=== PATIENT | female | born 2000 | race Caucasian/White ===

== ENCOUNTER 2024-01-24 21:16 | Emergency (ER) | payer MEDICAID, SELFPAY ==
[2024-01-24 21:18] VITALS: BP 129/85; PULSE 105; RESP 16; TEMP 37.9; O2SAT 97; BMI 31.3
--- NOTE | 2024-01-24 21:46 | ED_ITS ---
<Statement entered by Negrita Sharma DO - 01/24/24 23:53> I was consulted by the LANDRY, and we discussed the complexity of the problems being addressed. I approved the treatment and management plan for this patient's care in the emergency department, thus performing a substantive portion of the medical decision making. Negrita Sharma DO Discharge Plan Disposition Patient Disposition: Home, Self-Care Condition: Good Prescriptions Prescriptions: New cephalexin 500 mg capsule 500 mg PO BID 7 Days Qty: 14 0RF Referrals Follow up/Referrals: Kareen De La Fuente PA [Primary Care Provider] - See instructions Activity Restrictions/Add. Instructions Additional Instructions/Restrictions: Increase fluids and rest. Take ibuprofen for the pain and fever if needed. Take antibiotics as directed. If any other problems or concerns arise please return to the ED. Call PCP for follow-up treatment Clinical Impressions Clinical Impression: Pharyngitis Print Language Print Language: Chinese Discharge ED Provider: Negrita Sharma General Adult HPI <Carmelita Johnson (ED), PROFILE TRIMMER - Last Filed: 01/24/24 23:06> General Chief complaint: Upper Respiratory Infection Stated complaint: swollen lymph node rt side of neck, weak Time Seen by Provider: 01/24/24 21:38 Mode of Arrival: Ambulatory Source of Information: Patient Limitations: No Limitations Description of Symptoms (Recalled from ER Triage Doc. by RN): Patient ambulatory to ED with complaints of right side swollen throat pain with swollen lymph node x 3 days. Patient complains of body aches and low grade fever. Vomiting intermittently Related Data Previous Rx's ?Medication ?Instructions ?Recorded cephalexin 500 mg capsule 500 mg PO BID 7 days #14 caps 01/24/24 Allergies Allergy/AdvReac Type Severity Reaction Status Date / Time No Known Allergies Allergy Verified 01/24/24 21:46 PFSH <Carmelita Johnson (ED), PROFILE TRIMMER - Last Filed: 01/24/24 23:06> [facility], [facility] Disclaimer: The information contained in this section may have been updated after the patient was seen, as this information can be updated by other users. Social History Smoking Status: Never smoker alcohol intake: never current occupational status: employed Travel in the last 8 weeks: None <Carmelita Johnson (ED), PROFILE TRIMMER - Last Filed: 01/24/24 23:06> ROS Obtained: Yes Systems reviewed as appropriate & no additional complaints except as documented Constitutional Constitutional: Reports as per HPI Physical Exam <Carmelita Lavernemarcela (ED), PROFILE TRIMMER - Last Filed: 01/24/24 23:06> General General appearance: alert Head Head exam: atraumatic and normocephalic Eye Eye exam: Present normal appearance, PERRL and EOMI ENT ENT exam: Present normal exam and normal oropharynx Neck Neck exam: Present normal inspection, full ROM and trachea midline Respiratory Respiratory exam: Present normal lung sounds bilaterally Cardiovascular Cardiovascular exam: Present regular rate, normal rhythm, normal heart sounds, +S1 and +S2 Abdominal Exam Abdominal exam: Present soft and normal bowel sounds Extremities Exam Extremities exam: Present normal inspection, full ROM and normal capillary refill Neurological Exam Neurological exam: Present alert, oriented X3 and normal gait Skin Skin exam: Present warm, dry and intact Medical Decision Making <Carmelita Johnson (ED), PROFILE TRIMMER - Last Filed: 01/24/24 23:06> Medical Records Screening: Per USPSTF and CDC recommendations, given the prevalence of disease in our region, it is our hospital?s policy to screen for HIV and viral Hepatitis for all patients aged 18 and over and those with ongoing risk factors. Dominic Inquiry Pt receiving controlled substance: No Dominic was queried for this patient: No Vital Signs: 01/24/24 21:18 01/24/24 23:27 Temperature 100.2 F H 98.1 F Temperature Source Oral Oral Pulse Rate 79 Pulse Rate [Right] 105 H Respiratory Rate 16 15 Blood Pressure 104/65 L Blood Pressure [Right Arm] 129/85 Blood Pressure Mean [Right Arm] 99 Blood Pressure Source Automatic Cuff Blood Pressure Source [Right Arm] Automatic Cuff Blood Pressure Position Sitting Blood Pressure Position [Right Arm] Sitting 02 Sat by Pulse Oximetry 97 Oxygen Delivery Method Room Air Room Air Lab Data Lab Results 01/24/24 21:33: Group A Strep Rapid Negative 01/24/24 22:07: SARS-CoV-2 (PCR) Not detected, Influenza A Untype (PCR) Not detected, Influenza Type B (PCR) Not detected Orders (Tests/Meds): ED MEDICATIONS Discontinued Medications Generic Name Dose Route Start Last Admin Trade Name Freq PRN Reason Stop Dose Admin Dexamethasone Sodium Phosphate 8 mg 01/24/24 22:52 01/24/24 23:00 Dexamethasone 4mg/Ml 1ml Vial IV 01/24/24 22:53 8 mg ONCE ONE Administration Sodium Chloride 1,000 mls @ 999 mls/hr 01/24/24 21:44 01/24/24 21:50 Sod Chlor 0.9% 1000ml Bag IV 01/24/24 22:44 999 mls/hr .Q1H1M ONE Administration Ketorolac Tromethamine 15 mg 01/24/24 21:44 01/24/24 21:50 Ketorolac 30mg/Ml Vial IV 01/24/24 21:45 15 mg ONCE ONE Administration Ondansetron HCl 4 mg 01/24/24 21:44 01/24/24 21:50 Ondansetron 4mg/2ml Vial IV 01/24/24 21:45 4 mg ONCE ONE Administration ORDERS Category Date Time Status Rapid PCR Covid and Flu A/B Stat Lab 01/24/24 22:07 Completed Strep Scrn Group A (Rapid) Stat Lab 01/24/24 21:33 Completed Strep Screen Confirmation Stat Micro 01/24/24 21:33 Received Medical Decision Narrative: Insert review patient is a 23-year-old female presenting to the emergency department for evaluation of headache, cough, swollen lymph nodes, nausea, vomiting and dry throat. She feels weak and having chills and sweating. She says she is not tolerating much to eat or drink since last night.. Patient has a mild tachycardia with a heart rate of 105, temp of 100.2. Initial inventions include normal saline bolus, Toradol and Zofran. Initial workup will include COVID, strep. Strep test was negative. Discussed with patient that we would give her a shot of dexamethasone for the swelling. She has to follow-up with her PCP <Negrita Sharma, DO - Last Filed: 01/24/24 23:53> Vital Signs: 01/24/24 21:18 01/24/24 23:27 Temperature 100.2 F H 98.1 F Temperature Source Oral Oral Pulse Rate 79 Pulse Rate [Right] 105 H Respiratory Rate 16 15 Blood Pressure 104/65 L Blood Pressure [Right Arm] 129/85 Blood Pressure Mean [Right Arm] 99 Blood Pressure Source Automatic Cuff Blood Pressure Source [Right Arm] Automatic Cuff Blood Pressure Position Sitting Blood Pressure Position [Right Arm] Sitting 02 Sat by Pulse Oximetry 97 Oxygen Delivery Method Room Air Room Air Lab Data Lab Results 01/24/24 21:33: Group A Strep Rapid Negative 01/24/24 22:07: SARS-CoV-2 (PCR) Not detected, Influenza A Untype (PCR) Not detected, Influenza Type B (PCR) Not detected Orders (Tests/Meds): ED MEDICATIONS Discontinued Medications Generic Name Dose Route Start Last Admin Trade Name Ernesto PRN Reason Stop Dose Admin Dexamethasone Sodium Phosphate 8 mg 01/24/24 22:52 01/24/24 23:00 Dexamethasone 4mg/Ml 1ml Vial IV 01/24/24 22:53 8 mg ONCE ONE Administration Sodium Chloride 1,000 mls @ 999 mls/hr 01/24/24 21:44 01/24/24 21:50 Sod Chlor 0.9% 1000ml Bag IV 01/24/24 22:44 999 mls/hr .Q1H1M ONE Administration Ketorolac Tromethamine 15 mg 01/24/24 21:44 01/24/24 21:50 Ketorolac 30mg/Ml Vial IV 01/24/24 21:45 15 mg ONCE ONE Administration Ondansetron HCl 4 mg 01/24/24 21:44 01/24/24 21:50 Ondansetron 4mg/2ml Vial IV 01/24/24 21:45 4 mg ONCE ONE Administration ORDERS Category Date Time Status Rapid PCR Covid and Flu A/B Stat Lab 01/24/24 22:07 Completed Strep Scrn Group A (Rapid) Stat Lab 01/24/24 21:33 Completed Strep Screen Confirmation Stat Micro 01/24/24 21:33 Received Medical Decision Narrative: Insert review patient is a 23-year-old female presenting to the emergency department for evaluation of headache, cough, swollen lymph nodes, nausea, vomiting and dry throat. She feels weak and having chills and sweating. She says she is not tolerating much to eat or drink since last night.. Patient has a mild tachycardia with a heart rate of 105, temp of 100.2. Initial inventions include normal saline bolus, Toradol and Zofran. Initial workup will include COVID, strep. Strep test was negative. Discussed with patient that we would give her a shot of dexamethasone for the swelling. On reassessment, she is improved. It is felt that she likely has a viral syndrome at this time and is appropriate for discharge home with strict return precautions given her reassuring exam. She has to follow-up with her PCP. Strict return precautions were given Critical Care <Negrita Sharma, DO - Last Filed: 01/24/24 23:53> Critical Care Time Critical Care Time: No
[2024-01-24] MEDS: 0.9 % SODIUM CHLORIDE 1000ML 1,000 ML 999 ML IV (21:50)
[2024-01-24] MEDS: KETOROLAC 30MG/ML VIAL 15 MG IV (21:50)
[2024-01-24] MEDS: ONDANSETRON 4MG/2ML VIAL 4 MG IV (21:50)
[2024-01-24 21:57] LABS: Strep Scrn Group A (Rapid) Negative (Negative)
[2024-01-24 22:12] LABS: Coronavirus 19, PCR Not Detected (NotDetected); Influenza A, PCR Not Detected (NotDetected); Influenza B, PCR Not Detected (NotDetected)
[2024-01-24] MEDS: DEXAMETHASONE 4MG/ML 1ML VIAL 8 MG IV (23:00)
[2024-01-24 23:27] VITALS: BP 104/65; PULSE 79; RESP 15; TEMP 36.7; O2SAT 96
== END 2024-01-24 23:27 | disposition home or self-care (01) ==
PROVIDERS: Nurse Practitioner; Emergency Provider Emergency Medicine; PCP Physician Assistant Medical
DX: J06.9 Acute upper respiratory infection, unspecified (principal); J02.9 Acute pharyngitis, unspecified; R59.9 Enlarged lymph nodes, unspecified; R50.9 Fever, unspecified; R53.1 Weakness; R11.10 Vomiting, unspecified; R00.0 Tachycardia, unspecified
CPT/HCPCS: 87430; 87636; 96361; 96374; 96375; 99284; J1100; J1885; J2405; J7030

== ENCOUNTER 2024-07-15 13:10 | Emergency (ER) | payer MEDICAID, SELFPAY ==
[2024-07-15 13:30] VITALS: BP 110/86; PULSE 100; RESP 18; TEMP 36.9; O2SAT 97; BMI 41.5
[2024-07-15 13:38] LABS: Coronavirus 19, PCR Not Detected (NotDetected); Influenza A, PCR Not Detected (NotDetected); Influenza B, PCR Not Detected (NotDetected)
--- NOTE | 2024-07-15 15:04 | [facility].EDGENADL ---
Discharge Plan Disposition Patient Disposition: Home, Self-Care Prescriptions Prescriptions: New ondansetron 4 mg tablet,disintegrating 4 mg PO Q6H PRN (Reason: nausea and vomiting) Qty: 10 0RF No Action cephalexin 500 mg capsule 500 mg PO BID 7 Days Qty: 14 0RF Referrals Follow up/Referrals: Karene De La Fuente PA [Primary Care Provider] - See instructions Activity Restrictions/Add. Instructions Additional Instructions/Restrictions: Call your family doctor to establish care for this visit to the emergency department and schedule follow-up within 48 hours to ensure improvement. If you have any worsening of your condition or any other concerning signs or symptoms, return to the emergency department or your primary care doctor for further evaluation. Clinical Impressions Clinical Impression: Acute viral syndrome Print Language Print Language: Angolan Discharge ED Provider: Tim Wells Adult HPI General Chief complaint: Upper Respiratory Infection Stated complaint: vomiting, weakness, chills Time Seen by Provider: 07/15/24 15:04 Mode of Arrival: Ambulatory Source of Information: Patient Description of Symptoms (Recalled from ER Triage Doc. by RN): pt states she started vomiting this am when she got home from work. pt reports aching all over, chills. pt states uncertain of fever. History of Present Illness HPI narrative: Please note that above description of symptoms, in this electronic medical record under categorization of recalled from ER triage doctor by RN are reflective of an initial nursing assessment, however, is not reflective of my full history and physical exam that was personally taken and clarified. Consequentially, this preceding description of symptoms, which may include the patient's categorized chief complaint in the EMR, do not reflect my personal clinical impression, and the ultimate description of history of present illness and patient stated complaints should be deferred to this section of the note. Unless stated otherwise or congruent with this section of the note, additional signs, symptoms, or incongruence should be interpreted as inaccurate with my clinical impression. Related Data Previous Rx's ?Medication ?Instructions ?Recorded cephalexin 500 mg capsule 500 mg PO BID 7 days #14 caps 01/24/24 ondansetron 4 mg disintegrating 4 mg PO Q6H PRN nausea and 07/15/24 tablet vomiting #10 tabs Allergies Allergy/AdvReac Type Severity Reaction Status Date / Time No Known Allergies Allergy Verified 01/24/24 21:46 [facility] Disclaimer: The information contained in this section may have been updated after the patient was seen, as this information can be updated by other users. Social History (Updated 01/24/24 @ 23:53 by Negrita Sharma DO) Smoking Status: Never smoker alcohol intake: never current occupational status: employed Travel in the last 8 weeks: None Have you lived/traveled outside [place] in past 30 days?: No Contact w/someone who lives/traveled outside [place] past 30 days?: No Exposure to someone with infectious disease in past 14 days?: No Do you have a fever (greater than 100.4 F or 38 C)?: No Have you tested positive for COVID-19: No Exposed to someone with COVID-19 in past 14 days?: No Do you have a sore throat?: No Do you have a cough?: No Do you have any weakness?: Yes Do you have any diarrhea?: No Are you experiencing any unusual bleeding?: No Do you have any muscle aches/pain?: No Do you have any abdominal pain?: No Are you experiencing loss of taste or smell?: No ROS Obtained: Yes All systems reviewed & no additional complaints except as documented Physical Exam General General appearance: alert Head Head exam: atraumatic and normocephalic Eye Eye exam: Present normal appearance, PERRL and EOMI Neck Neck exam: Present normal inspection, full ROM and trachea midline Respiratory Respiratory exam: Absent respiratory distress, wheezes, stridor, accessory muscle use or prolonged expiratory phase Cardiovascular Cardiovascular exam: Present other (Pulses equal symmetric in upper and lower extremities) Abdominal Exam Abdominal exam: Present soft; Absent distention, tenderness or pulsatile mass Extremities Exam Extremities exam: Absent edema Neurological Exam Neurological exam: Present alert, oriented X3 and CN II-XII intact; Absent motor sensory deficit Skin Skin exam: Present warm and dry; Absent diaphoresis or erythema Medical Decision Making Medical Records Medical records reviewed: Yes I reviewed the patient's medical records. Screening: Per USPSTF and CDC recommendations, given the prevalence of disease in our region, it is our hospital?s policy to screen for HIV and viral Hepatitis for all patients aged 18 and over and those with ongoing risk factors. Dominic Inquiry Pt receiving controlled substance: No Dominic was queried for this patient: No Vital Signs: 07/15/24 13:30 Temperature 98.5 F Temperature Source Oral Pulse Rate [Right Radial] 100 H Respiratory Rate 18 Blood Pressure [Right Arm] 110/86 Blood Pressure Mean [Right Arm] 94 02 Sat by Pulse Oximetry 97 Oxygen Delivery Method Room Air Lab Data Lab Results 07/15/24 13:34: SARS-CoV-2 (PCR) Not detected, Influenza A Untype (PCR) Not detected, Influenza Type B (PCR) Not detected Orders (Tests/Meds): ED MEDICATIONS Discontinued Medications Generic Name Dose Route Start Last Admin Trade Name Ernesto PRN Reason Stop Dose Admin Ondansetron HCl 4 mg 07/15/24 15:11 07/15/24 15:13 Ondansetron 4mg Odt SL 07/15/24 15:12 4 mg ONCE ONE Administration ORDERS Category Date Time Status Rapid PCR Covid and Flu A/B Stat Lab 07/15/24 13:34 Completed Medical Decision Narrative: 23-year-old female presenting with vomiting and diarrhea. 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 Started throwing up around 6 AM. Largely unable to tolerate any fluids or food secondary to vomiting. Also having nonbloody diarrhea. Vomiting is nonbloody, nonbilious and looks like mucus. Has been chilled, but no objective fevers have been measured. No acute complaints at this time. States that she has not been vomiting since she has been here, but still feels nauseated. No abdominal pain or complaints. History obtained with patient. On arrival, patient hemodynamically stable, alert, oriented x4, appropriate, GCS 15, moving all extremities spontaneously, pupils equal and reactive to light. Full physical exam performed and significant for well-appearing female no acute distress. Patient speaking full sentences, hemodynamically stable and afebrile. Differential includes gastritis, gastroenteritis, among others. Patient given sublingual Zofran. Viral swab to be obtained at request. On independent interpretation, viral swab negative for COVID and flu. On reevaluation, tolerating p.o. intake after Zofran. Given patient presentation, workup, history, this most likely represents acute gastroenteritis. Because patient at baseline without signs or symptoms of clinical decompensation, deemed appropriate for discharge. Results were relayed to patient who voiced understanding and were agreeable to outpatient management and follow up. I discussed my clinical impression with patient and answered all questions. At this time, the evidence for any other entities in the differential is insufficient to warrant any further testing or ED observation. This was explained as well. Advisory was given that persistent or worsening symptoms require further evaluation. I confirmed the understanding of this discussion. Traffic Representative disclaimer Much of this encounter note is an electronic electronic publications specialist spoken language to printed text. Electronic electronic publications specialist of the spoken language may permit errors. Although I have reviewed the note, some errors may still exist. Critical Care Critical Care Time Critical Care Time: No
[2024-07-15] MEDS: ONDANSETRON 4MG ODT 4 MG SL (15:13)
[2024-07-15 15:31] VITALS: BP 110/86; PULSE 100; RESP 18; TEMP 36.9; O2SAT 97
== END 2024-07-15 15:32 | disposition home or self-care (01) ==
PROVIDERS: Emergency Provider Emergency Medicine; PCP Physician Assistant Medical
DX: B34.9 Viral infection, unspecified (principal); R11.10 Vomiting, unspecified; R52 Pain, unspecified; R68.83 Chills (without fever); R19.7 Diarrhea, unspecified; R11.0 Nausea
CPT/HCPCS: 87636; 99283; Q0162

== ENCOUNTER 2024-07-17 04:46 | Emergency (ER) | payer MEDICAID, SELFPAY ==
--- NOTE | 2024-07-17 04:53 | HMH.EDGENADL ---
Discharge Plan Disposition Patient Disposition: Home, Self-Care Prescriptions Prescriptions: New promethazine 25 mg tablet 25 mg PO Q6H PRN (Reason: nausea and vomiting) Qty: 20 0RF No Action ondansetron 4 mg tablet,disintegrating 4 mg PO Q6H PRN (Reason: nausea and vomiting) Qty: 10 0RF cephalexin 500 mg capsule 500 mg PO BID 7 Days Qty: 14 0RF Referrals Follow up/Referrals: Provider,Referral, MD [Primary Care Provider] - See instructions Activity Restrictions/Add. Instructions Additional Instructions/Restrictions: Please follow-up with your primary care provider. Please return to the emergency department if you develop any new or worsening symptoms or become concerned for your health. Please take Phenergan as needed for nausea and vomiting. Clinical Impressions Clinical Impression: Nausea vomiting and diarrhea Instructions Patient Instructions: DI for Diarrhea and Traveler's Diarrhea -- Adult, DI for Diarrhea and Traveler's Diarrhea -- Child, DI for Nausea -- Adult, DI for Nausea -- Child Print Language Print Language: Libyan Discharge ED Provider: Gurinder Arenas General Adult HPI General Chief complaint: Nausea/Vomiting/Diarrhea Stated complaint: vomiting, diarrhea, fever Time Seen by Provider: 07/17/24 04:53 History of Present Illness HPI narrative: 23-year-old female presents for continued nausea vomiting and diarrhea. She was seen here several days ago and tested negative for COVID and flu and was discharged but her symptoms have persisted. She is able to keep things down for approximately an hour but then vomited afterwards. She reports no blood in the vomit or diarrhea. Some crampy abdominal pain with vomiting but no severe or specific abdominal pain. Related Data Previous Rx's ?Medication ?Instructions ?Recorded cephalexin 500 mg capsule 500 mg PO BID 7 days #14 caps 01/24/24 ondansetron 4 mg disintegrating 4 mg PO Q6H PRN nausea and 07/15/24 tablet vomiting #10 tabs promethazine 25 mg tablet 25 mg PO Q6H PRN nausea and 07/17/24 vomiting #20 tabs Allergies Allergy/AdvReac Type Severity Reaction Status Date / Time No Known Allergies Allergy Verified 01/24/24 21:46 [facility] Disclaimer: The information contained in this section may have been updated after the patient was seen, as this information can be updated by other users. Social History (Updated 01/24/24 @ 23:53 by Negrita Sharma DO) Smoking Status: Never smoker alcohol intake: never current occupational status: employed Travel in the last 8 weeks: None Have you lived/traveled outside US in past 30 days?: No Contact w/someone who lives/traveled outside US past 30 days?: No Exposure to someone with infectious disease in past 14 days?: No Do you have a fever (greater than 100.4 F or 38 C)?: Yes Have you tested positive for COVID-19: No Exposed to someone with COVID-19 in past 14 days?: No Do you have a sore throat?: No Do you have a cough?: No Do you have any weakness?: No Do you have any diarrhea?: Yes Are you experiencing any unusual bleeding?: No Do you have any muscle aches/pain?: No Do you have any abdominal pain?: Yes Are you experiencing loss of taste or smell?: No ROS Obtained: Yes All systems reviewed & no additional complaints except as documented Physical Exam General General appearance: alert and in no apparent distress Head Head exam: atraumatic and normocephalic Eye Eye exam: Present normal appearance, PERRL and EOMI ENT ENT exam: Present normal oropharynx and normal external ear exam Neck Neck exam: Present normal inspection and full ROM Chest Chest inspection: Present normal inspection and symmetric chest wall rise; Absent tenderness Respiratory Respiratory exam: Present normal lung sounds bilaterally; Absent respiratory distress Cardiovascular Cardiovascular exam: Present regular rate and normal rhythm Abdominal Exam Abdominal exam: Present soft; Absent distention, tenderness or guarding Extremities Exam Extremities exam: Present normal inspection; Absent edema or joint swelling Back Exam Back exam: Present normal inspection; Absent tenderness Neurological Exam Neurological exam: Present alert and oriented X3; Absent motor sensory deficit Psychiatric Psychiatric exam: Present normal affect and normal mood Skin Skin exam: Present warm, dry and normal color Lymphatic Lymphatic Findings: no adenopathy Medical Decision Making Medical Records Medical records reviewed: Yes I reviewed the patient's medical records. Screening: Per USPSTF and CDC recommendations, given the prevalence of disease in our region, it is our hospital?s policy to screen for HIV and viral Hepatitis for all patients aged 18 and over and those with ongoing risk factors. Dominic Inquiry Pt receiving controlled substance: No Dominic was queried for this patient: No Vital Signs: 07/17/24 05:07 Temperature 98.2 F Temperature Source Oral Pulse Rate [Radial] 111 H Respiratory Rate 22 Blood Pressure [Right Arm] 153/94 H Blood Pressure Mean [Right Arm] 113 Blood Pressure Position [Right Arm] Sitting 02 Sat by Pulse Oximetry 98 Oxygen Delivery Method Room Air Lab Data Lab results reviewed: Yes I reviewed the patient's lab results. Lab Results 07/17/24 05:52: WBC 9.9, RBC 4.47, Hgb 13.2, Hct 38.3, MCV 85.7, MCH 29.5, MCHC 34.5, RDW 12.0, Plt Count 180, MPV 9.7, Neut % (Auto) 77.6, Lymph % (Auto) 8.9 L, Harper % (Auto) 12.2 H, Eos % (Auto) 0.9, Baso % (Auto) 0.1, Neut # (Auto) 7.7, Lymph # (Auto) 0.9, Harper # (Auto) 1.2 H, Eos # (Auto) 0.1, Baso # (Auto) 0.0, Sodium 136, Potassium 4.0, Chloride 109 H, Carbon Dioxide 19 L, Anion Gap 12.0, BUN 11, Creatinine 0.60, Estimated Creat Clear 133, Estimated GFR 126, Est GFR ( Amer) 153, Glucose 92, Calcium 8.7, Magnesium 1.9, Total Bilirubin 0.4, AST 50 H, ALT 40, Alkaline Phosphatase 54, Total Protein 7.6, Albumin 4.4, Globulin 3.2, Albumin/Globulin Ratio 1.4, Lipase 24 07/17/24 05:52 07/17/24 05:52 Orders (Tests/Meds): ED MEDICATIONS Discontinued Medications Generic Name Dose Route Start Last Admin Trade Name Freq PRN Reason Stop Dose Admin Lactated Ringer's 1,000 mls @ 999 mls/hr 07/17/24 05:45 07/17/24 05:50 Lactated Ringer's 1000 Ml Bag IV 07/17/24 06:45 999 mls/hr .Q1H1M SOCRATES Administration Promethazine HCl 25 mg 07/17/24 05:33 07/17/24 05:51 Promethazine Hcl 25mg/Ml 1ml Vial IV 07/17/24 05:34 25 mg ONCE ONE Administration Sodium Chloride 25 ml 07/17/24 05:33 07/17/24 05:50 Sodium Chloride 0.9% 25ml Bag IV 07/17/24 05:34 25 ml ONCE ONE Administration ORDERS Category Date Time Status CBC w/Auto Diff [Complete Blood Count Auto Diff] Stat Lab 07/17/24 05:52 Completed CMP [Comprehensive Metabolic Panel] Stat Lab 07/17/24 05:52 Completed Diarrhea 23 Panel, PCR Stat Lab 07/17/24 05:35 Received Lipase Stat Lab 07/17/24 05:52 Completed Magnesium Stat Lab 07/17/24 05:52 Completed Medical Decision Narrative: 23-year-old female without significant past medical history presents for continued nausea vomiting and diarrhea.. History was obtained via interactive discussion with patient, chart review. On arrival, patient is [afebrile, hemodynamically stable, satting appropriately, alert, oriented x4, GCS 15], moving all extremities spontaneously. Full physical exam performed and significant for no significant abdominal tenderness Differential includes but is not limited to dehydration, electrolyte derangement, viral/bacterial gastroenteritis, pancreatitis. Patient was given Phenergan, 1 L IV fluid for symptomatic management and correction of underlying abnormalities. Workup initiated including CBC CMP lipase mag diarrhea panel. On re-evaluation, patient [remains afebrile, HD stable.] Laboratory workup independently interpreted by me and significant for no significant electrolyte derangement or leukocytosis. Negative lipase. CT imaging was considered, but deemed unnecessary due to 9 abdominal exam. Given patient history, exam and workup, patient's presentation most likely represents gastroenteritis. Patient remained stable, no vomiting. She was discharged with stool studies pending. Procedures Risk/Benefits of Procedure(s) Were Explained: Yes Critical Care Critical Care Time Critical Care Time: No
[2024-07-17 05:07] VITALS: BP 153/94; PULSE 111; RESP 22; TEMP 36.8; O2SAT 98; BMI 46.5
[2024-07-17 05:44] LABS: Adenovirus F 40/41, stool Not Detected (NotDetected); Campylobacter Not Detected (NotDetected); Clostridium Difficile A/B, PCR Not Detected (NotDetected); Cryptosporidium Not Detected (NotDetected); Cyclospora Cayetanesis Not Detected (NotDetected); Entamoeba histolytica Not Detected (NotDetected); Enteroaggregative E coli Not Detected (NotDetected); Enteropathogenic E coli Not Detected (NotDetected); Enterotoxigenic E coli Not Detected (NotDetected); Giardia lamblia Not Detected (NotDetected); Norovirus Not Detected (NotDetected); Plesimonas Shigalloides, PCR Not Detected (NotDetected); Rotavirus A Not Detected (NotDetected); Salmonella, PCR Not Detected (NotDetected); Sapovirus Not Detected (NotDetected); Shiga-like toxin E coli Not Detected (NotDetected); Shigella Enterovasive E coli Not Detected (NotDetected); Vibrio Cholerae Not Detected (NotDetected); Vibrio, PCR Not Detected (NotDetected); Yersinia Entercolitica, PCR Not Detected (NotDetected)
[2024-07-17] MEDS: LACTATED RINGERS 1000ML 1,000 ML 999 ML IV (05:50)
[2024-07-17] MEDS: SODIUM CHLORIDE 0.9% 25ML BAG 25 ML IV (05:50)
[2024-07-17] MEDS: PROMETHAZINE HCL 25MG/ML 1ML VIAL 25 MG IV (05:51)
[2024-07-17 06:03] LABS: Basophils % 0.1 % (0.1-2.0); Eosinophils # 0.1 K/mm3 (0.0-0.4); Eosinophils % 0.9 % (0.1-12.0); Hematocrit 38.3 % (37.0-47.0); Hemoglobin 13.2 g/dL (12.2-16.2); Lymphocytes # 0.9 K/mm3 (0.7-4.5); Lymphocytes % 8.9 % (10-50); Mean Corpuscular HGB Conc 34.5 g/dL (31.8-35.4); Mean Corpuscular Hemoglobin 29.5 pg (27.0-31.2); Mean Corpuscular Volume 85.7 fl (81-99); Mean Platelet Volume 9.7 fl (7.4-10.4); Monocytes # 1.2 K/mm3 (0.1-1.0); Monocytes % 12.2 % (1.7-9.3); Neutrophils # 7.7 K/mm3 (1.8-7.8); Neutrophils % 77.6 % (37.0-80.0); Platelet Count 180 K/mm3 (142-424); Red Blood Count 4.47 M/mm3 (4.20-5.40); White Blood Count 9.9 K/mm3 (4.8-10.8)
[2024-07-17 06:12] LABS: Alanine Aminotransferase 40 U/L (12-78); Albumin Level 4.4 g/dl (3.5-5.0); Albumin/Globulin Ratio 1.4 (1.1-1.8); Alkaline Phosphatase 54 U/L (38-126); Aspartate Amino Transferase 50 U/L (14-36); Bilirubin,Total 0.4 mg/dl (0.2-1.3); Blood Urea Nitrogen 11 mg/dl (7-17); Calcium 8.7 mg/dl (8.4-10.2); Carbon Dioxide 19 mmol/L (22.0-30.0); Chloride 109 mmol/L (98-107); Creatinine Clearance Estimated 133 mL/min (50-200); Estimated Glomerular Filt Rate 126 ml/min (>60); GFR (African American) 153 ML/MIN (>60); Globulin 3.2 g/dL (1.3-3.2); Glucose 92 mg/dl (74-100); Magnesium 1.9 mg/dl (1.6-2.3); Sodium 136 mmol/L (136-145); Total Protein,Serum 7.6 g/dl (6.3-8.2)
[2024-07-17 06:21] LABS: Lipase 24 U/L (23-300)
[2024-07-17 07:00] VITALS: BP 128/81; PULSE 78; O2SAT 95
[2024-07-17 07:25] VITALS: BP 128/81; PULSE 77; RESP 16; TEMP 36.6; O2SAT 98
[2024-07-17 07:42] LABS: Astrovirus Detected (NotDetected)
== END 2024-07-17 07:26 | disposition home or self-care (01) ==
PROVIDERS: Emergency Provider Emergency Medicine
DX: R11.2 Nausea with vomiting, unspecified (principal); R50.9 Fever, unspecified; R19.7 Diarrhea, unspecified
CPT/HCPCS: 80053; 83690; 83735; 85025; 87507; 96361; 96374; 99283; J2550; J7120

== ENCOUNTER 2024-12-31 10:32 | Outpatient (CLI) | payer OTHER, SELFPAY ==
[2024-12-31 21:05] LABS: Influenza A, PCR Not Detected (NotDetected); Influenza B, PCR Not Detected (NotDetected)
[2025-01-01 05:53] LABS: Coronavirus 19, PCR Detected (NotDetected)
--- OUTSIDE RECORDS SUMMARY | 2025-01-03 10:34 | XMS_ITS | Clinical Summary ---
Author Organization Healthcare Address [address] [place] [address] Care Team Providers Care Tipple Mechanic Name Role Phone Unavailable Primary Care Provider Unavailabl e Immunizations Immunization Administration Dates Next Due Validus COVID-19 Vaccine (Purple Cap) 12 + 05/02/2021 Social History Tobacco Use Types Packs/Day Years Used Date Smoking Tobacco: Never Assessed Comments Unknown Sex and Gender Information Value Date Recorded Sex Assigned at Not on file Legal Sex Female 1:15 PM EST Gender Identity Not on file Sexual Orientation Not on file Plan of Treatment Health Maintenance Due Date Last Done Comments [facility]-Depression Screening 2002 [facility]-Infant/Child/Adol SDOH Screenings 2002 HPV Vaccines (1 - 3-dose series) 2017 [facility]- SDOH Screenings 2020 [facility]-Adult SDOH Screenings 2020 [facility]-Pap Smear 08/13/2023 BTM-JSHIZ-18 Vaccine ( season) 2024 05/02/2021, 09/19/2020, 08/29/2020 [facility]-DTaP,Tdap,and Td Vaccines (7 - Td or Tdap) 05/31/2024 05/31/2014, 05/30/2007, 11/26/2003, Additional history exists [facility]-Influenza Vaccine (#1) 2025 [facility]-Zoster Vaccines (1 of 2) 2052 04/15/2017, 05/31/2014 [facility]-Hepatitis B Vaccines Completed 003, 2002, 2002 [facility]-IPV Vaccines Completed 05/30/2007, , 2002, Additional history exists [facility]-Varicella Vaccines Completed 04/15/2017, 2014 [facility]-Hepatitis A Vaccines Completed 12/15/2017, 04/04 [facility]-HIB Vaccines Aged Out No longer e ligible based on patient's age to complete this topic [facility]-Pneumococcal Vaccine: Pediatrics (0 to 5 Years) and At-Risk Patients (6 to 49 Years) Aged Out No longer eligible based on patient's age to complete this topic [facility]-Rotavirus Vaccines Aged Out No lo nger eligible based on patient's age to complete this topic Insurance MEDICAID
--- OUTSIDE RECORDS SUMMARY | 2025-01-03 10:34 | XMS_ITS | Clinical Summary ---
Author Organization [facility] Address [address] [place] [address] Care Team Providers Care Manager Collection Name Role Phone Kareen Kelly PA-C Primary Care Provide r Allergies Active Allergy Reactions Criticality Noted Date Comments Sodium Hypochlorite Other (See Comments) 2024 Medications fexofenadine (Mikala Allergy) 180 MG tabletIndicatio ns:Seasonal allergies Take 1 tablet by mouth Daily. 90 tablet 1 5 Active fluticasone (FLONASE) 50 MCG/ACT nasal sprayIndication s:Seasonal allergies Administer 2 sprays into the nostril(s) as directed by provider Daily. 16 g 11 5 Active Active Problems Problem Noted Date Diagnosed Date Routine gynecological examination 03/29/2024 Obesity (BMI 30-39.9) 03/29/2024 Irregular menses 03/29/2024 Encounter for surveillance of contraceptive pill s 10/22/2019 Scoliosis (and kyphoscoliosis), idiopathic 04/07 Overview (02/02/2021): 2020 Regulatory DX Update Resolved Problems Problem Noted Date Diagnosed Date Resolved Date Uses control 04/23/2019 1 Immunizations Immunization Administration Dates Next Due COVID-19 (PFIZER) Purple Cap Monovalent 09/19/2020,08/29/2020 DTaP 05/30/2007, 4,02/23/2003,12/23,2002 Hep A, 2 Dose 12/15/2017,04/15/2017 Hepatitis A 12/15/2017,04/15/2017 Hepatitis B Adult/Adolescent IM 02/23/2003,12/23,2002 IPV 05/30/2007, 3,2002,10/12 MMR 05/28/2007,08/26/2003 Meningococcal B,(Bexsero) 12/22/2018,12/15/2017, 05/31/2014 Meningococcal Conjugate 12/22/2018,05/31/2014 Meningococcal MCV4P (Menactra) 12/22/2018 Tdap 05/31/2014 Varicella 04/15/2017,05/31/2014 Family History Medical History Relation Name Comments Diabetes Father Hypertension Father Other Half-Sister B12 deficiency Diabetes Mother Ovarian cancer Paternal Grandmother Relation Name Status Comments Father Half-Sister Mother Paternal Grandmother Social History Tobacco Use Types Packs/Day Years Used Date Smoking Tobacco: Never Passive Smoke Exposure: Never Smokeless Tobacco: Never Tobacco Cessation:Counseling Given: Not Answered Alcohol Use Standard Drinks/Week Comments No 0 (1 standard drink = 0.6 oz pur e alcohol) AUDIT-C Answer Date Recorded Frequency of Alcohol Consumption Never 01/15/2019 Average Number of Drinks Not on file 019 Frequency of Binge Drinking Not on file 01/03 PHQ-2 Answer Date Recorded Retired PHQ-9: Brief Depression Severity Measure Score 0 12/13/2022 PHQ-2 Answer Date Recorded Retired PHQ-9: Brief Depression Severity Measure Score 0 10/17/2023 Comments No Sex and Gender Information Value Date Recorded Sex Assigned at Not on file Legal Sex Female 3:00 PM EDT Gender Identity Not on file Sexual Orientation Not on file Last Filed Vital Signs Vital Sign Reading Time Taken Comments Blood Pressure 130/80 08/27/2024 2:20 PM EDT Pulse 87 08/27/2024 1:19 PM EDT Temperature 36.4 C (97.5 F) 10/17/2023 11:26 AM EDT Respiratory Rate 22 09/18/2023 7:00 PM EDT Oxygen Saturation 98% 08/27/2024 1:19 PM EDT Inhaled Oxygen Concentration - - Weight 112 kg (248 lb) 08/27/2024 1:19 PM EDT Height 165.1 cm (5' 5 ) 08/27/2024 1:19 PM EDT Body Mass Index 41.27 08/27/2024 1:19 PM EDT Plan of Treatment Upcoming Encounters Date Type Department Care Team (Late st Contact Info) Description 03/05/2025 10:30 AM EDT Office Visit [facility]IMARY [facility]ARE [address] [place] [address] Kareen Kelly PA-C [address] [place], [place] [id number] 04/04/2025 9:00 AM EST Office Visit [facility] OBGYN [address] [facility] [address] [place] [address] Kacey Chandler MD [address] [facility] [address] [place], [place] [phone] Health Maintenance Due Date Last Done Comments HPV VACCINES (1 - 3-dose series) 2017 HEPATITIS C SCREENING 01/15/2019 COVID-19 Vaccine ( season) 2024 05/02/2021, 09/19/2020, 08/29/2020 TDAP/TD VACCINES (2 - Td or Tdap) 05/31/2024 05/31/2014 ANNUAL PHYSICAL 12/18/2024 12/19/2023, 12/13/2022 CHLAMYDIA SCREENING 12/18/2024 12/19/2023, 12/19/2023, 10/17/2023, Additional history exists Annual Gynecologic Pelvic and Breast Exam 12/19/2024 12/19/2023 PAP SMEAR 12/18/2026 12/19/2023 MENINGOCOCCAL B VACCINE Completed 12/23/19, 12/15/2017, 05/31/2014 MENINGOCOCCAL VACCINE Completed 12/22/2018 , 12/22/2018, 05/31/2014 INFLUENZA VACCINE Discontinued Pneumococcal Vaccine 0-49 Aged Out No longer eligible based on patient's age to complete this topic Procedures Procedure Name Priority Date/Time Associated Diagnosis Comments LIQUID-BASED PAP SMEAR WITH HPV GENOTYPING REGARDLESS OF INTERPRETATION, [facility] (LEVI,COR,MAD) Routine 12/19/2023 10:10 AM EDT Well female exam with routine gynecological exam NUSWAB VG+ Routine 12/19/2023 10:09 AM EDT Vaginal discharge from Last 3 Months or Most Recently Relevant to Health Maintenance Results * LIQUID-BASED PAP SMEAR WITH HPV GENOTYPING REGARDLESS OF INTERPRETATION (LEVI,COR,MAD) (12/19/2023 10:10 AM EDT) Reference Lab Report [facility] [address] [place] [address] or [phone] Shilo Diaz M.D., Application Support Engineer PATIENT NAME [facility]ATORY [address] [id number] AGE SEX SSN CLIENT REF # [id number] 23 2000 F [id number] [address] REQUEST[address] [place]. [place] [address] KAREEN KELLY DATE COLLECTED DATE RECEIVED DATE REPORTED 12/19/2023 12/19/2023 12/26/2023 ThinPrep Pap with Cytyc Imaging DIAGNOSIS: Negative for intraepithelial lesion or malignancy Multiple factors can influence accuracy of Pap tests; therefore, screening at regular intervals is necessary for early cancer detection. SPECIMEN ADEQUACY: SATISFACTORY FOR EVALUATION Transformation zone is absent or insufficient. SOURCE OF SPECIMEN: CERVICAL SLIDES: 1 CLINICAL HISTORY: Well female exam with routine gynecological exam Discharge HPV HR-HPV POOL: Negative The Aptima HPV assay is an in vitro nucleic acid amplification test for the qualitative detection of E6/E7 viral messenger RNA from 14 high risk types of HPV in cervical specimens. The high risk HPV types detected include: 16, 18, 31, 33, 35, 39, 45, 51, 52, 56, 58, 59, 66, 68 TEST MAN: SHARDA EMMANUEL (ASCP) CPT CODES: 74354, 69242 12/26/2023 9:13 AM EDT [facility] ThinPrep Vial Collection / Unknown 12/19/2023 10:10 AM EDT 12/19/2023 10:10 AM EDT Kareen Kelly PA-C PATHOLOGY/CYTOLOGY OR DERABLES Final Result [facility]
[address] [place] [address], * NuSwab VG+ - Swab, Vagina (12/19/2023 10:09 AM EDT) Atopobium Vaginae Low - 0 Score 024 9:07 PM EDT [facility] BVAB 2 Low - 0 Score 12/22/2023 9:07 PM EDT [facility] Megasphaera 1 Low - 0 Score 12/22/2023 9:07 PM EDT [facility] Comment: Calculate total score by adding the 3 individual bacterial vaginosis (BV) marker scores together. Total score is interpreted as follows: Total score 0-1: Indicates the absence of BV. Total score 2: Indeterminate for BV. Additional clinical data should be evaluated to establish a diagnosis. Total score 3-6: Indicates the presence of BV. Gisela Albicans, GERTRUDE Negative Negative 12/22/2023 9:07 PM EDT [facility] Gisela Glabrata, GERTRUDE Negative Negative 12/22/2023 9:07 PM EDT [facility] Trichomonas vaginosis Negative Negative 12/22/2023 9:07 PM EDT [facility] Chlamydia trachomatis, GERTRUDE Negative Negative 12/22/2023 9:07 PM EDT [facility] Neisseria gonorrhoeae, GERTRUDE Negative Negative 12/22/2023 9:07 PM EDT [facility] Swab Vaginal structure / Unknown Collection / Unknown 12/19/2023 10:09 AM EDT 12/19/2023 10:09 AM EDT Narrative [facility] - 12/22/2023 9:07 PM EDT Test(s) 277652- Atopobium vaginae; 013019- BVAB 2; 405121- Megasphaera 1 was developed and its performance characteristics [facility]. It has not been cleared or approved by the Food and Drug Administration. Test(s) 013513-Waqdjvx albicans, GERTRUDE; 219024-Fsmdbyv glabrata, GERTRUDE was developed and its performance characteristics determined by [facility]. It has not been cleared or approved by the Food and Drug Administration. Performed at: 01 - [facility] [id number] Skip Hoist Operator: Oksana Gaviria MD, Phone: [phone] Kareen Kelly PA-C MICROBIOLOGY - GENERA L ORDERABLES Final Result [facility] [address] [place] [address], from Last 3 Months or Most Recently Relevant to Health Maintenance Insurance [employer] Advance Directives Documents on File Type Date Recorded Patient Transition Rn Expl anation POWER OF SOCIAL MEDIA MARKETER - SCAN 01/29/2019 9:44 AM [facility] Care Teams Manager Collection Relationship Specialty Start Date End Date Kareen Kelly PA-C [address] [place], [place] [phone] PCP - General Physician Supervisor Warping Department 10/22/19
== END 2024-12-31 23:59 ==
LOC: LAB.DROPOF 01-03 10:32
PROVIDERS: PCP Nurse Practitioner; Visit Provider Nurse Practitioner
DX: J06.9 Acute upper respiratory infection, unspecified (principal)
CPT/HCPCS: 87631